=== PATIENT | female | born 2000 | race Caucasian/White ===

== ENCOUNTER 2019-09-04 11:59 | Outpatient (CLI) | payer BC ==
--- NOTE | 2019-09-04 12:12 | RAD ---
EXAM: Two views chest PROVIDED CLINICAL HISTORY: Cough and fever COMPARISON: None FINDINGS: Cardiac and mediastinal silhouette appears within normal limits. Lungs appear free of significant opa city. No pleural fluid or pneumothorax apparent. IMPRESSION: No evidence for an acute cardiopulmonary process.
== END 2019-09-04 12:00 | disposition home or self-care (01) ==
LOC: BICRAD 11:59
PROVIDERS: ATTEND Internal Medicine
DX: R05 Cough (principal)
CPT/HCPCS: 71046; 87070